=== PATIENT | male | born 1995 | race American Indian/Alaskan Native ===

== ENCOUNTER 2018-04-18 23:19 | Emergency (ER) | payer MEDICAID ==
[2018-04-18 23:36] VITALS: BP 107/69
[2018-04-19] LABS: Basophils # (Auto) 0.1 K/mm3 (0.0-0.1); Eosinophils # (Auto) 0.1 K/mm3 (0.0-0.4); Eosinophils % (Auto) 1.2 % (0.0-4.3); Hematocrit 38.1 % (35.5-45.6); Hemoglobin 12.8 gm/dl (11.8-15.2); Lymphocytes # (Auto) 1.9 K/mm3 (1.2-5.4); Lymphocytes % (Auto) 32.4 % (13.4-35.0); Mean Corpuscular HGB Conc 34 % (32-34); Mean Corpuscular Hemoglobin 29 pg (28-32); Mean Corpuscular Volume 87 fl (84-94); Monocytes # (Auto) 0.6 K/mm3 (0.0-0.8); Monocytes % (Auto) 10.4 % (0.0-7.3); Platelet Count 227 K/mm3 (140-440); Red Cell Distribution Width 13.5 % (13.2-15.2)
[2018-04-19 00:16] LABS: BUN/Creatinine Ratio 16; Blood Urea Nitrogen 16 mg/dL (9-20); Calcium 8.8 mg/dL (8.4-10.2); Hemolysis Index 25
[2018-04-19] MEDS ORDERED: NACL 0.9% 1000 ML 1,000 ML ONE (00:40)
[2018-04-19 00:44] LABS: Bilirubin,Urine NEG (Negative); Blood,Urine NEG (Negative); Color,Urine Straw (Yellow); Mucus,Urine FEW /HPF; Protein,Urine <15 mg/dL mg/dL (Negative); RBC,Urine < 1.0 /HPF (0.0-6.0); Urobilinogen,Urine < 2.0 mg/dL (<2.0); WBC,Urine < 1.0 /HPF (0.0-6.0)
[2018-04-19] MEDS ORDERED: NACL 0.9% 1000 ML 1,000 ML IV ONE (00:45)
[2018-04-19] MEDS ORDERED: cefTRIAXone 1 GM in NACL 0.9% 20 ML IV ONE (02:04)
[2018-04-19] MEDS ORDERED: ROCEPHIN/NS 1 GM/50 ML 1 GM/50 ML BAG IV ONE (02:04)
[2018-04-19] MEDS ORDERED: BACTRIM DS PO ONE (02:04)
[2018-04-19] MEDS ORDERED: TORADOL IV ONE (02:05)
[2018-04-19] MEDS ORDERED: HumuLIN R IV ONE (02:05)
--- NOTE | 2018-04-19 03:17 | Emergency Department Report ---
HPI - General Chief Complaint: Hyperglycemia Time Seen by Provider: 04/19/18 01:25 - HPI HPI: The patient is a 22-year-old male with a history of diabetes, who presents for evaluation of right dorsal forearm pain and redness for the past one week. The patient reports an area of redness and pain that has been constant, mild in severity, stating in quality, exacerbated with movement of the arm, and associated with one day of drainage. The patient denies blood trauma or puncture wound to the arm, fever, chills, night sweats, chest pain, dyspnea, paresthesias or motor deficit in the extremities, or other focal neurological deficit. ED Past Medical Hx - Past Medical History Previous Medical History?: Yes Hx Diabetes: Yes - Surgical History Past Surgical History?: Yes Additional Surgical History: Ankle and ACL surgery - Social History Smoking Status: Never Smoker Substance Use Type: None - Medications Home Medications: Home Medications Medication Instructions Recorded Confirmed Last Taken Type Cephalexin [Keflex] 500 mg PO QID #30 capsule 04/19/18 Unknown Rx HYDROcodone/APAP 5-325 [[place] 1 each PO Q6HR PRN #14 tablet 04/19/18 Unknown Rx 5/325] Ondansetron [Zofran TAB] 4 mg PO Q8HR PRN #15 tablet 04/19/18 Unknown Rx Sulfamethoxazole/Trimethoprim 1 each PO BID #20 tablet 04/19/18 Unknown Rx [Bactrim DS TAB] ED Review of Systems ROS: Stated complaint: BLOOD SUGAR UP Other details as noted in HPI Constitutional: denies: fever ENT: denies: throat or neck pain Respiratory: denies: cough, shortness of breath Cardiovascular: denies: chest pain Endocrine: denies unexplained weight loss or gain Gastrointestinal: denies: abdominal pain, nausea Genitourinary: denies: dysuria Musculoskeletal: reports arm pain denies: leg swelling Skin: denies: rash Neurological: denies: headache Hematological/Lymphatic: denies: easy bleeding or easy bruising Psych: denies sadness or hopelessness Physical Exam - Physical Exam Vital Signs: Vital Signs 04/18/18 04/18/18 04/19/18 23:25 23:32 00:44 Temperature 98.1 F 98.1 F Pulse Rate 87 89 Respiratory 18 18 18 Rate Blood Pressure 107/69 107/69 O2 Sat by Pulse 95 95 95 Oximetry 04/19/18 02:34 Temperature Pulse Rate Respiratory 18 Rate Blood Pressure O2 Sat by Pulse Oximetry Physical Exam: General: well-nourished, well-developed, no acute distress Head: Normocephalic, atraumatic Eyes: normal sclera ENT: Mucous membranes are pale and dry Neck: trachea midline, neck supple, No neck stiffness, no cervical adenopathy Respiratory: Breath sounds equal bilaterally, no wheezing, rales, or rhonchi Cardio: S1 and S2 present, no murmurs, rubs, gallops, capillary refill is delayed Abdomen: Normoactive bowel sounds, soft abdomen, no rigidity, no guarding or rebound tenderness Musc: area of redness to the dorsum of the right forearm, tender to palpation, no fluctuance, no purulent drainage or discharge, forearm compartments are soft and pliable, sensation, motor function, and pulses intact in the great alarm distal to the patient's infection Skin: No rash Neuro: no facial drooping, normal speech Psych: Normal affect ED Course Vital Signs 04/18/18 04/18/18 04/19/18 23:25 23:32 00:44 Temperature 98.1 F 98.1 F Pulse Rate 87 89 Respiratory 18 18 18 Rate Blood Pressure 107/69 107/69 O2 Sat by Pulse 95 95 95 Oximetry 04/19/18 02:34 Temperature Pulse Rate Respiratory 18 Rate Blood Pressure O2 Sat by Pulse Oximetry ED Medical Decision Making - Lab Data Result diagrams: 04/18/18 23:43 04/18/18 23:43 - Medical Decision Making The patient was seen and examined by myself. The patient is placed on a six color press operator and continuous pulse ox. On initial evaluation, the patient was found to be in no distress. Evaluation orders were placed. The patient given 1 L normal saline fluid bolus for treatment of dehydration and hyperglycemia. The patient is given IV pain medicine for his pain. Exam findings are consistent with acute cellulitis of the dorsal right forearm, without abscess. The patient is given IV Rocephin and Bactrim for treatment of his infection. Lab results revealed elevated glucose of 400. The patient is given IV insulin for treatment of his hyperglycemia. The patient was reevaluated and reported that their symptoms were markedly improved. The patient is stable for discharge with outpatient follow-up. The patient is given follow-up and return instructions. The patient expressed understanding and agreed with the plan. The patient is discharged in stable condition. Critical care attestation.: If time is entered above; I have spent that time in minutes in the direct care of this critically ill patient, excluding procedure time. ED Disposition Clinical Impression: Dehydration, Acute hyperglycemia, Right forearm cellulitis, Right arm pain Disposition: TO HOME OR SELFCARE Is pt being admited?: No Does the pt Need Aspirin: No Condition: Stable Instructions: Cellulitis (ED), Diabetic Hyperglycemia (ED), Musculoskeletal Pain (ED) Referrals: GEORGE GELLER MD [Primary Care Provider] - 3-5 Days Time of Disposition: 03:18
== END 2018-04-19 03:34 | disposition home or self-care (01) ==
LOC: ED 23:19
DX: L03.113 Cellulitis of right upper limb (principal); E86.0 Dehydration; E11.65 Type 2 diabetes mellitus with hyperglycemia
CPT/HCPCS: 36415; 80048; 81001; 82805; 82962; 85025; 96361; 96374; 96375; 99284; J0696; J1885; J7030; J1815

== ENCOUNTER 2018-05-09 11:33 | Emergency (ER) | payer MEDICAID ==
[2018-05-09 12:09] LABS: Basophils % (Auto) 0.8 % (0.0-1.8); Eosinophils # (Auto) 0.1 K/mm3 (0.0-0.4); Eosinophils % (Auto) 2.4 % (0.0-4.3); Hematocrit 42.1 % (35.5-45.6); Lymphocytes # (Auto) 1.6 K/mm3 (1.2-5.4); Lymphocytes % (Auto) 40.1 % (13.4-35.0); Mean Corpuscular HGB Conc 33 % (32-34); Mean Corpuscular Hemoglobin 28 pg (28-32); Mean Corpuscular Volume 86 fl (84-94); Monocytes # (Auto) 0.5 K/mm3 (0.0-0.8); Monocytes % (Auto) 13.6 % (0.0-7.3); Platelet Count 214 K/mm3 (140-440); Red Blood Count 4.92 M/mm3 (3.65-5.03); Red Cell Distribution Width 13.6 % (13.2-15.2)
[2018-05-09 12:10] LABS: Bilirubin,Urine NEG (Negative); Blood,Urine NEG (Negative); Color,Urine Yellow (Yellow); Mucus,Urine FEW /HPF; Protein,Urine <15 mg/dL mg/dL (Negative); Urobilinogen,Urine < 2.0 mg/dL (<2.0); WBC,Urine < 1.0 /HPF (0.0-6.0)
[2018-05-09 12:24] LABS: BUN/Creatinine Ratio 9; Blood Urea Nitrogen 8 mg/dL (9-20); Calcium 8.9 mg/dL (8.4-10.2); Hemolysis Index 7
[2018-05-09] MEDS ORDERED: NACL 0.9% 1000 ML 1,000 ML IV ONE (12:33)
--- NOTE | 2018-05-09 12:59 | Emergency Department Report ---
HPI - General Chief Complaint: Hyperglycemia Time Seen by Provider: 05/09/18 12:32 - HPI HPI: Room 19 The patient is a 22-year-old male presenting with a chief complaint of bilateral lower extremity weakness. The patient states he awakened this morning and noticed to floor extremities felt tight and were twitching. The patient states this lasted approximately 10 minutes afterwards his legs felt very weak as he describes them as feeling like "noodles." Patient states he developed nausea but no vomiting. The patient states he developed bilateral ankle numbness. Patient denies any preceding URI symptoms or recent fevers. 2 days ago the patient experienced blurred vision Location: [See above] Duration: [See above] Quality: Weakness Severity: mild Modifying factors: [see above] Context: [see above] Mode of transportation: Unknown ED Past Medical Hx - Past Medical History Hx Hypertension: Yes Hx Diabetes: Yes - Surgical History Past Surgical History?: Yes Additional Surgical History: Ankle and ACL surgery - Family History Family history: no significant - Social History Smoking Status: Never Smoker Substance Use Type: None (denies illicit drug use) - Medications Home Medications: Home Medications Medication Instructions Recorded Confirmed Last Taken Type Cephalexin [Keflex] 500 mg PO QID #30 capsule 04/19/18 Unknown Rx HYDROcodone/APAP 5-325 [[place] 1 each PO Q6HR PRN #14 tablet 04/19/18 Unknown Rx 5/325] Ondansetron [Zofran TAB] 4 mg PO Q8HR PRN #15 tablet 04/19/18 Unknown Rx Sulfamethoxazole/Trimethoprim 1 each PO BID #20 tablet 04/19/18 Unknown Rx [Bactrim DS TAB] ED Review of Systems ROS: Stated complaint: RESTLESS LEGS Other details as noted in HPI Constitutional: denies: fever Eyes: vision change ENT: denies: throat pain Cardiovascular: denies: chest pain Gastrointestinal: nausea. denies: abdominal pain, vomiting Genitourinary: denies: dysuria Musculoskeletal: myalgia Neurological: weakness, numbness. denies: headache Physical Exam - Physical Exam Vital Signs: Vital Signs 05/09/18 11:41 Temperature 98.7 F Pulse Rate 96 H Respiratory 16 Rate Blood Pressure 143/88 O2 Sat by Pulse 99 Oximetry Physical Exam: GENERAL: The patient is well-developed well-nourished male lying on stretcher not appearing to be in acute distress. [] HEENT: Normocephalic. Atraumatic. Extraocular motions are intact. Patient has moist mucous membranes. NECK: Supple. Trachea midline CHEST/LUNGS: Clear to auscultation. There is no respiratory distress noted. HEART/CARDIOVASCULAR: Regular. There is no tachycardia. There is no gallop rub or murmur. ABDOMEN: Abdomen is soft, nontender. Patient has normal bowel sounds. There is no abdominal distention. SKIN: There are tiny punctate red pustules on bilateral thighs which may be consistent with insect bites. There is no edema. There is no diaphoresis. NEURO: The patient is awake, alert, and oriented. The patient is cooperative. The patient has no focal neurologic deficits. The patient has normal speech. Cranial nerves II through XII grossly intact, no drift. I'm unable to elicit bilateral patellar DTRs. There is no Clonus MUSCULOSKELETAL: There is no evidence of acute injury. ED Course Vital Signs 05/09/18 11:41 Temperature 98.7 F Pulse Rate 96 H Respiratory 16 Rate Blood Pressure 143/88 O2 Sat by Pulse 99 Oximetry - Reevaluation(s) Reevaluation #1: 05/09/18 14:24 Patient has intermittent twitching of the left quadricep muscles. ED Medical Decision Making - Lab Data Result diagrams: 05/09/18 11:52 05/09/18 11:52 Laboratory Tests 05/09/18 05/09/18 05/09/18 11:42 11:52 11:52 WBC 3.9 L RBC 4.92 Hgb 14.0 Hct 42.1 MCV 86 MCH 28 MCHC 33 RDW 13.6 Plt Count 214 Lymph % (Auto) 40.1 H [place] % (Auto) 13.6 H Eos % (Auto) 2.4 Baso % (Auto) 0.8 Lymph # 1.6 [place] # 0.5 Eos # 0.1 Baso # 0.0 Seg Neutrophils % 43.1 Seg Neutrophils # 1.7 L PT INR APTT VBG pH Sodium 132 L Potassium 3.5 L Chloride 90.5 L Carbon Dioxide 30 Anion Gap 15 BUN 8 L Creatinine 0.9 Estimated GFR > 60 BUN/Creatinine Ratio 9 Glucose 458 H POC Glucose 383 H Calcium 8.9 Magnesium Total Creatine Kinase Urine Color Urine Turbidity Urine pH Ur Specific [place] Urine Protein Urine Glucose (UA) Urine Ketones Urine Blood Urine Nitrite Urine Bilirubin Urine Urobilinogen Ur Leukocyte Esterase Urine WBC (Auto) Urine RBC (Auto) U Epithel Cells (Auto) Urine Mucus 05/09/18 05/09/18 05/09/18 11:52 12:43 12:54 WBC RBC Hgb Hct MCV MCH MCHC RDW Plt Count Lymph % (Auto) [place] % (Auto) Eos % (Auto) Baso % (Auto) Lymph # [place] # Eos # Baso # Seg Neutrophils % Seg Neutrophils # PT 12.7 INR 0.91 APTT 24.7 VBG pH 7.381 Sodium Potassium Chloride Carbon Dioxide Anion Gap BUN Creatinine Estimated GFR BUN/Creatinine Ratio Glucose POC Glucose Calcium Magnesium 2.00 Total Creatine Kinase 372 H Urine Color Urine Turbidity Urine pH Ur Specific [place] Urine Protein Urine Glucose (UA) Urine Ketones Urine Blood Urine Nitrite Urine Bilirubin Urine Urobilinogen Ur Leukocyte Esterase Urine WBC (Auto) Urine RBC (Auto) U Epithel Cells (Auto) Urine Mucus 05/09/18 05/09/18 13:31 Unknown WBC RBC Hgb Hct MCV MCH MCHC RDW Plt Count Lymph % (Auto) [place] % (Auto) Eos % (Auto) Baso % (Auto) Lymph # [place] # Eos # Baso # Seg Neutrophils % Seg Neutrophils # PT INR APTT VBG pH Sodium Potassium Chloride Carbon Dioxide Anion Gap BUN Creatinine Estimated GFR BUN/Creatinine Ratio Glucose POC Glucose 458 H Calcium Magnesium Total Creatine Kinase Urine Color Yellow Urine Turbidity Clear Urine pH 6.0 Ur Specific [place] 1.024 Urine Protein <15 mg/dl Urine Glucose (UA) >=500 Urine Ketones Tr Urine Blood Neg Urine Nitrite Neg Urine Bilirubin Neg Urine Urobilinogen < 2.0 Ur Leukocyte Esterase Neg Urine WBC (Auto) < 1.0 Urine RBC (Auto) 1.0 U Epithel Cells (Auto) < 1.0 Urine Mucus Few - Medical Decision Making Patient still symptomatic complaining of twitching in the lower extremities. Given that the patient is still symptomatic, complains of weakness in the lower extremities and I am unable to elicit bilateral patellar DTRs believe is prudent to admit the patient to the hospital for further evaluation - Differential Diagnosis [place] syndrome, rhabdomyolysis, hypomagnesemia, electrolyte imbalan Critical care attestation.: If time is entered above; I have spent that time in minutes in the direct care of this critically ill patient, excluding procedure time. ED Disposition Clinical Impression: Weakness of both lower extremities, Muscle twitching, Hyperglycemia Disposition: DC-09 OP ADMIT IP TO THIS HOSP Is pt being admited?: Yes Does the pt Need Aspirin: Yes Condition: Fair Referrals: PRIMARY CARE, [Primary Care Provider] - 3-5 Days Time of Disposition: 14:26 (hospitalist notified (Dr Mccarthy))
[2018-05-09] MEDS ORDERED: HumuLIN R ONE (13:27)
[2018-05-09] MEDS ORDERED: HumuLIN R IV ONE ×2 (13:28→14:24)
[2018-05-09 13:39] LABS: INR 0.91 (0.87-1.13); Partial Thromboplastin Time 24.7 Sec. (24.2-36.6)
--- NOTE | 2018-05-09 14:51 | History and Physical Report ---
History of Present Illness Chief complaint: My legs feel like noodles History of present illness: 22 YO Male with HTN, DM presents to ED for evaluation. Pt states that he has experienced leg weakness and blurred vision over the past 2 days. Pt states that he experienced blurred vision 2 days ago which has improved over the past 2 days. Pt also states that he awoke from sleep this morning and felt like his legs were "twitching and felt like noodles". Pt states that he was unable to bear weight on his legs. Pt states that the symptoms lasted for approximately 10 minutes and resolved. Pt denies fever, chills, CP, Palpitations, NVD, Syncope , dysuria, urgency, frequency, hematuria, sore throat, skin rash or recent ill contacts. Pt seen and evaluated in ED and found to have peripheral neuropathy. Past History Past Medical History: diabetes, hypertension Past Surgical History: Other (Ankle, ACL surgery) Social history: single. denies: smoking, alcohol abuse, prescription drug abuse Family history: no significant family history Medications and Allergies Allergies Allergy/AdvReac Type Severity Reaction Status Date / Time No Known Allergies Allergy Verified 04/19/18 00:46 Home Medications Medication Instructions Recorded Confirmed Last Taken Type Cephalexin [Keflex] 500 mg PO QID #30 capsule 04/19/18 Unknown Rx HYDROcodone/APAP 5-325 [[place] 1 each PO Q6HR PRN #14 tablet 04/19/18 Unknown Rx 5/325] Ondansetron [Zofran TAB] 4 mg PO Q8HR PRN #15 tablet 04/19/18 Unknown Rx Sulfamethoxazole/Trimethoprim 1 each PO BID #20 tablet 04/19/18 Unknown Rx [Bactrim DS TAB] Review of Systems Constitutional: no weight loss, no weight gain, no fever, no chills, no sweats, no fatigue, no weakness Ears, nose, mouth and throat: no ear pain, no ear discharge, no tinnitis, no decreased hearing, no nose pain, no nasal congestion, no nasal discharge Cardiovascular: no chest pain, no orthopnea, no palpitations, no rapid/ irregular heart beat, no edema, no syncope, no lightheadedness, no claudication , no phlebitis, no high blood pressure Respiratory: no cough, no cough with sputum, no excessive sputum, no hemoptysis Gastrointestinal: no abdominal pain, no nausea, no vomiting, no diarrhea, no constipation, no change in bowel habits Genitourinary Male: no hematuria, no flank pain, no discharge, no urinary frequency, no urinary hesitancy, no nocturia, no erectile dysfunction Rectal: no pain, no incontinence, no bleeding Musculoskeletal: no neck stiffness, no neck pain, no shooting arm pain, no arm numbness/tingling, no hot joints, no morning stiffness, no muscle weakness Integumentary: no rash, no pruritis, no redness, no sores, no wounds, no jaundice, no bullae, no lesions, no darkening of skin, no depigmentation Neurological: weakness, numbness, motor disturbance, other (blurred vision), no head injury, no transient paralysis Psychiatric: no anxiety, no memory loss, no change in sleep habits, no sleep disturbances, no insomnia, no hypersomnia, no change in appetite, no change in libido, no suicidal ideation Endocrine: no cold intolerance, no heat intolerance, no polyphagia, no excessive thirst, no polydipsia, no polyuria, no nocturia, no excessive sweating Hematologic/Lymphatic: no easy bruising, no easy bleeding, no lymphadenopathy Allergic/Immunologic: no urticaria, no allergic rhinitis, no wheezing, no persistent infections, no anaphylaxis, no angioedema Exam - Constitutional Vitals: Temp Pulse Resp BP Pulse Ox 98.7 F 92 H 13 126/83 97 05/09/18 11:41 05/09/18 13:00 05/09/18 13:00 05/09/18 13:00 05/09/18 13:00 General appearance: Present: no acute distress, well-nourished - EENT Eyes: Present: PERRL ENT: hearing intact, clear oral mucosa - Neck Neck: Present: supple, normal ROM - Respiratory Respiratory effort: normal Respiratory: bilateral: CTA - Cardiovascular Heart Sounds: Present: S1 & S2. Absent: rub, click - Extremities Extremities: pulses symmetrical, No edema Peripheral Pulses: within normal limits - Abdominal General gastrointestinal: Present: soft, non-tender, non-distended, normal bowel sounds Male genitourinary: Present: normal - Integumentary Integumentary: Present: clear, warm, dry - Musculoskeletal Musculoskeletal: gait normal, strength equal bilaterally - Psychiatric Psychiatric: appropriate mood/affect, intact judgment & insight - Neurologic Neurologic: CNII-XII intact, moves all extremities Results - Labs CBC & Chem 7: 05/09/18 11:52 05/09/18 11:52 Labs: Abnormal lab results 05/09/18 05/09/18 05/09/18 Range/Units 11:42 11:52 11:52 WBC 3.9 L (4.5-11.0) K/mm3 Lymph % (Auto) 40.1 H (13.4-35.0) % [place] % (Auto) 13.6 H (0.0-7.3) % Seg Neutrophils # 1.7 L (1.8-7.7) K/mm3 Sodium 132 L (137-145) mmol/L Potassium 3.5 L (3.6-5.0) mmol/L Chloride 90.5 L (98-107) mmol/L BUN 8 L (9-20) mg/dL Glucose 458 H (75-100) mg/dL POC Glucose 383 H (70-105) Total Creatine Kinase (55-170) units/L 05/09/18 05/09/18 Range/Units 12:43 13:31 WBC (4.5-11.0) K/mm3 Lymph % (Auto) (13.4-35.0) % [place] % (Auto) (0.0-7.3) % Seg Neutrophils # (1.8-7.7) K/mm3 Sodium (137-145) mmol/L Potassium (3.6-5.0) mmol/L Chloride (98-107) mmol/L BUN (9-20) mg/dL Glucose (75-100) mg/dL POC Glucose 458 H (70-105) Total Creatine Kinase 372 H (55-170) units/L Assessment and Plan - Patient Problems (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 Pt elects to go to another hospital for car. (2) HTN (hypertension) Status: Acute Qualifiers: Hypertension type: essential hypertension Qualified Code(s): I10 - Essential (primary) hypertension Plan to address problem: monitor bp q shift, continue prehospital medication, (3) Diabetes Status: Acute Plan to address problem: ADA diet, insulin, accu check, Hgb A1c, (4) Neuropathy Status: Acute Plan to address problem: uncertain etiology. Discussed workup and plan of care with patient. Consider Demyelinating Polyneuropathy, (5) Uncontrolled diabetes mellitus Status: Acute Plan to address problem: sliding scale insulin, ADA diet, accu check (6) DVT prophylaxis Status: Acute Plan to address problem: SCD to BLE while in bed.
[2018-05-09] MEDS ORDERED: D50W (25GM) Syringe IV PRN (15:39)
[2018-05-09 16:21] VITALS: BP 122/82
[2018-05-09] MEDS ORDERED: HumaLOG SUB-Q SCH (18:00)
== END 2018-05-09 17:40 | disposition left against medical advice (07) ==
LOC: ED 11:33
DX: E11.65 Type 2 diabetes mellitus with hyperglycemia (principal); I10 Essential (primary) hypertension
CPT/HCPCS: 36415; 80048; 81001; 82550; 82805; 82962; 83735; 85025; 85610; 85730; 96361; 96374; 96376; 99284; J7030; J1815

== ENCOUNTER 2022-01-09 16:48 | Emergency (ER) | payer SELFPAY ==
[2022-01-09 17:50] VITALS: BP 168/86
--- NOTE | 2022-01-09 21:07 | Emergency Department Report ---
ED Extremity Problem HPI - General Chief complaint: Extremity Injury, Lower Stated complaint: KNEE PAIN Time Seen by Provider: 01/09/22 21:01 Source: patient Mode of arrival: Ambulatory Limitations: No Limitations - History of Present Illness Initial comments: 26 year old male presents to ED with complaints of left knee pain and injury. Patient states that he was stepping down off the back of his van when he slid and landed on his feet but with his knee in full extension. He states incident occurred today. He reports diffuse pain in knee and swelling. He reports increased pain with movement of knee and ambulation. He reports prior meniscal injury to knee requiring repair when he was teenager. MD Complaint: joint swelling, joint paint -: This afternoon Severity scale (0 -10): 9 - Related Data Previous Rx's Medication Instructions Recorded Last Taken Type Ondansetron [Zofran TAB] 4 mg PO Q8HR PRN #15 tablet 04/19/18 Unknown Rx Sulfamethoxazole/Trimethoprim 1 each PO BID #20 tablet 04/19/18 Unknown Rx [Bactrim DS TAB] cephALEXin [Keflex] 500 mg PO QID #30 capsule 04/19/18 Unknown Rx Acetaminophen/Codeine [Tylenol 1 tab PO Q6H PRN #12 tab 01/09/22 Unknown Rx /Codeine # 3 tab] Ketorolac [Toradol] 10 mg PO Q6H PRN #20 tab 01/09/22 Unknown Rx Allergies Allergy/AdvReac Type Severity Reaction Status Date / Time No Known Allergies Allergy Verified 01/09/22 17:44 ED Review of Systems ROS: Stated complaint: KNEE PAIN Other details as noted in HPI Comment: All other systems reviewed and negative Constitutional: denies: chills, fever Eyes: denies: eye pain, eye discharge, vision change ENT: denies: ear pain, throat pain, dental pain, hearing loss, epistaxis, congestion Respiratory: denies: cough, shortness of breath, SOB with exertion, SOB at rest, wheezing Gastrointestinal: denies: abdominal pain, nausea, diarrhea, constipation, hematemesis, melena, hematochezia Genitourinary: denies: urgency, dysuria, frequency, hematuria, discharge, t esticular pain, testicular mass Musculoskeletal: joint swelling, arthralgia Skin: denies: rash, lesions, change in color, change in hair/nails, pruritus Neurological: abnormal gait. denies: headache, weakness, numbness, paresthesias, confusion, vertigo Psychiatric: denies: anxiety, depression, auditory hallucinations, visual hallucinations, homicidal thoughts, suicidal thoughts Hematological/Lymphatic: denies: easy bleeding, easy bruising ED Past Medical Hx - Past Medical History Hx Hypertension: Yes Hx Diabetes: Yes - Surgical History Additional Surgical History: Ankle and ACL surgery - Social History Smoking Status: Never Smoker Substance Use Type: None (denies illicit drug use) - Medications Home Medications: Home Medications Medication Instructions Recorded Confirmed Last Taken Type Ondansetron [Zofran TAB] 4 mg PO Q8HR PRN #15 tablet 04/19/18 Unknown Rx Sulfamethoxazole/Trimethoprim 1 each PO BID #20 tablet 04/19/18 Unknown Rx [Bactrim DS TAB] cephALEXin [Keflex] 500 mg PO QID #30 capsule 04/19/18 Unknown Rx Acetaminophen/Codeine [Tylenol 1 tab PO Q6H PRN #12 tab 01/09/22 Unknown Rx /Codeine # 3 tab] Ketorolac [Toradol] 10 mg PO Q6H PRN #20 tab 01/09/22 Unknown Rx ED Physical Exam - General Limitations: No Limitations General appearance: alert, in no apparent distress - Head Head exam: Present: atraumatic, normocephalic, normal inspection - Eye Eye exam: Present: normal appearance, PERRL, EOMI Pupils: Present: normal accommodation - Neck Neck exam: Present: normal inspection, full ROM - Respiratory Respiratory exam: Present: normal lung sounds bilaterally. Absent: respiratory distress, wheezes, rales, rhonchi - Cardiovascular Cardiovascular Exam: Present: regular rate, normal rhythm, normal heart sounds - GI/Abdominal GI/Abdominal exam: Present: soft. Absent: distended, tenderness, guarding, rebound - Expanded Lower Extremity Exam Left Knee exam: Present: normal inspection, full ROM (ROM is painful but otherwise normal ), tenderness (diffuse ), full knee extension. Absent: swelling, abrasion, laceration, ecchymosis, deformity, crepidus, dislocation, erythema, effusion, pain w/ pronation/supination, posterior draw sign, pain/laxity with valgus, pain/laxity with varus Neuro vascular tendon exam: Present: no vascular compromise. Absent: pulse deficit, abnormal cap refill, motor deficit, sensory deficit, tendon deficit Gait: Positive: observed and normal - Neurological Exam Neurological exam: Present: alert, oriented X3, CN II-XII intact, normal gait - Psychiatric Psychiatric exam: Present: normal affect, normal mood - Skin Skin exam: Present: intact ED Course Vital Signs 01/09/22 17:46 Temperature 98.1 F Pulse Rate 83 Respiratory 20 Rate Blood Pressure 168/86 [Right] O2 Sat by Pulse 98 Oximetry ED Medical Decision Making - Radiology Data Radiology results: report reviewed Patient: AMARIS MAGANA MR#: [id number] : 1995 Acct:[id number] Age/Sex: 26 / M ADM Date: 01/09/22 Loc: ED Attending Dr: Ordering Physician: DAVID COOPER Date of Service: 01/09/22 Procedure(s): XR knee 4+V LT Accession Number(s): [id number] cc: DAVID COOPER Fluoro Time In Minutes: LEFT KNEE 5 VIEW(S) INDICATION / CLINICAL INFORMATION: knee pain /injury COMPARISON: None available. FINDINGS: BONES / JOINT(S): No acute fracture or subluxation. Moderate to severe tricompartment degeneration. SOFT TISSUES: No significant abnormality. ADDITIONAL FINDINGS: None. Signer Name: Kenji Ruiz DO Signed: 01/09/2022 10:04 PM Workstation Name: [id number] Transcribed By: KULDEEP Dictated By: KENJI RUIZ DO Electronically Authenticated By: KENJI RUIZ DO Signed Date/Time: 01/09/222203 DD/ 02 TD/TT: Critical care attestation.: If time is entered above; I have spent that time in minutes in the direct care of this critically ill patient, excluding procedure time. ED Disposition Clinical Impression: Knee sprain, DJD (degenerative joint disease) of knee Disposition: HOME / SELF CARE / HOMELESS Is pt being admited?: No Does the pt Need Aspirin: No Condition: Stable Instructions: Elastic Bandage and RICE Therapy, Knee Sprain, Adult, [id number], Osteoarthritis Additional Instructions: Rest, ice and elevate leg as often as possible. Use jayson wrap as discussed. Follo w up with Ortho in 1 week. Return to ED if worse. Prescriptions: Ketorolac [Toradol] 10 mg PO Q6H PRN #20 tab PRN Reason: Pain Acetaminophen/Codeine [Tylenol /Codeine # 3 tab] 1 tab PO Q6H PRN #12 tab PRN Reason: pain Referrals: REAGAN PETERS MD [Staff Physician] - 3-5 Days Forms: Work/School Release Form(ED) Time of Disposition: 22:16
--- NOTE | 2022-01-09 22:08 | XRay Report ---
LEFT KNEE 5 VIEW(S) INDICATION / CLINICAL INFORMATION: knee pain /injury COMPARISON: None available. FINDINGS: BONES / JOINT(S): No acute fracture or subluxation. Moderate to severe tricompartment degeneration. SOFT TISSUES: No significant abnormality. ADDITIONAL FINDINGS: None. Signer Name: Kenji Hernandez DO Signed: 01/09/2022 10:04 PM Workstation Name: [id number]
== END 2022-01-09 23:30 | disposition home or self-care (01) ==
LOC: ED 16:48
DX: S83.92XA Sprain of unspecified site of left knee, initial encounter (principal); M17.10 Unilateral primary osteoarthritis, unspecified knee; I10 Essential (primary) hypertension; E11.9 Type 2 diabetes mellitus without complications; X58.XXXA Exposure to other specified factors, initial encounter; Y93.89 Activity, other specified; Y92.89 Other specified places as the place of occurrence of the external cause; Y99.8 Other external cause status
CPT/HCPCS: 99283